=== PATIENT | female | born 1950 | race Caucasian/White ===

== ENCOUNTER 2023-05-20 10:28 | Observation (INO) | payer MEDICARE ==
[~2023-05-20] VITALS: Ht 160 cm; Wt 105.0 kg
[~2023-05-20 10:28] MED LIST: AMLO10TA PO; APIX5TAB3 PO; ATOR20TA66 PO; BENA20TA2 PO; DILT-36 PO; LEVO175T7 PO; METO100T14 PO
[2023-05-20] MEDS ORDERED: magnesium 2GM in 50ml NS 50 ML IV ONE (10:40)
--- NOTE | 2023-05-20 11:01 | NUR ---
Dr Cox at bedside to give Magnesium IV as a bolus. (See EMAR).
[2023-05-20 11:12] LABS: HEMOGLOBIN 14.8 g/dl (12.0-16.0); MONOCYTES # (AUTO) 0.8 X10'3 (0-0.9)
[2023-05-20 11:13] LABS: BASOPHILS # (AUTO) 0.1 X10'3 (0-0.2); BASOPHILS % (AUTO) 0.9 % (0-1); EOSINOPHILS # (AUTO) 0.2 X10'3 (0-0.9); EOSINOPHILS % (AUTO) 1.8 % (0-6); HEMATOCRIT 45.8 % (35.0-45.0); LYMPHOCYTES # (AUTO) 1.4 X10'3 (1.1-4.8); LYMPHOCYTES % (AUTO) 16.8 % (21-51); MEAN CORPUSCULAR HGB CONC 32.5 g/dL (33.0-36.5); MEAN CORPUSCULAR VOLUME 95.6 FL (78-98); MONOCYTES % (AUTO) 9.2 % (2-12); NEUTROPHILS # (AUTO) 5.8 X10'3 (1.8-7.7); NEUTROPHILS % (AUTO) 71.3 % (42-75); PLATELET COUNT 264 X10'3 (140-440); RED BLOOD COUNT 4.79 X10'6 (4.20-5.60); RED CELL DISTRIBUTION WIDTH 14.9 % (11.5-14.5); WHITE BLOOD COUNT 8.2 X10'3 (4.5-11.0)
[2023-05-20 11:14] LABS: ALANINE AMINOTRANSFERASE 25 U/L (12-78); ALBUMIN 4.3 G/DL (3.4-5.0); ALBUMIN/GLOBULIN RATIO 1.3 (1.1-1.5); ALKALINE PHOSPHATASE 97 IU/L (46-116); ANION GAP 5 (8-16); ASPARTATE AMINO TRANSFERASE 20 U/L (10-37); BILIRUBIN,TOTAL 0.8 MG/DL (0.1-1.0); BLOOD UREA NITROGEN 26 MG/DL (7-18); BUN/CREATININE RATIO 16.1 (10.0-20.0); CALCIUM 10.3 MG/DL (8.5-10.1); CHLORIDE 100 MMOL/L (99-107); CREATININE 1.61 MG/DL (0.40-0.90); GLUCOSE 114 MG/DL (70-104); POTASSIUM 4.3 MMOL/L (3.5-5.1); SODIUM 135 MMOL/L (135-145); TOTAL CARBON DIOXIDE 29.8 MMOL/L (24-32); TOTAL PROTEIN 7.7 G/DL (6.4-8.2); eCRCL 26 ML/MIN; eGFR 31 ML/MIN
[2023-05-20] MEDS ORDERED: diltiazem 5mg/ml 5ml inj. IV ONE (11:20)
[2023-05-20] MEDS ORDERED: diltiazem-NS 100mg/100ml 100 ML IV PRN (11:20)
[2023-05-20 11:23] LABS: MAGNESIUM 2.2 MG/DL (1.5-2.4); PRO BRAIN NATRIURETIC PEPTIDE 2202 PG/ML (0-125)
[2023-05-20 12:01] LABS: APTT 33 SECONDS (22-32); PROTHROMBIN TIME 11.2 SECONDS (9.0-12.0)
[2023-05-20] MEDS ORDERED: midazolam 1 mg/ML 2ml injection IV ONE (12:25)
[2023-05-20] MEDS ORDERED: propofol 10mg/ml 20ml vial IV ONE ×2 (12:25→13:25)
[2023-05-20] MEDS: etomidate 2mg/ml inj. IV ONE ×2 (12:26→12:39)
--- NOTE | 2023-05-20 12:27 | NUR ---
MD ADMINISTERED 20MG PROPOFOL TO PT DURING CARDIOVERSION PROCEDURE AT 1227. PT TOLERATED PROCEDURE WELL - SEE POST MOD SEDATION NOTEDS.
[2023-05-20 12:54] VITALS: RESP 12; O2SAT 97
[2023-05-20] MEDS ORDERED: HYDROcodone/acetaminophen 10/325mg tab PO PRN (14:15)
[2023-05-20] MEDS ORDERED: magnesium 2GM in 50ml NS 50 ML IV PRN (14:15)
[2023-05-20] MEDS ORDERED: potassium Cl 20 mEq SR tablet PO PRN ×2 (14:15)
[2023-05-20] MEDS ORDERED: potassium Cl 40MEQ/1/2NS 520ml 520 ML IV PRN (14:15)
[2023-05-20] MEDS ORDERED: magnesium 4gm in 100ml NS 100 ML IV PRN (14:15)
[2023-05-20] MEDS ORDERED: mag hydrox/Alum hydrox/simeth 30ml oral suspension PO PRN (14:15)
[2023-05-20] MEDS ORDERED: acetaminophen 325mg tablet PO PRN ×3 (14:15→23:20)
[2023-05-20] MEDS ORDERED: PERFLUTREN PROTEIN-A MICROSPHR (Optison) 0.22 MG/ML 3ML VIAL IV ONE (14:15)
[2023-05-20] MEDS ORDERED: bisacodyl 10mg suppository rectal RC PRN (14:15)
[2023-05-20] MEDS ORDERED: HYDROcodone/acetaminophen 5mg/325mg tablet PO PRN (14:15)
[2023-05-20] MEDS ORDERED: ondansetron/PF 4mg/2ml inj IV PRN (14:15)
[2023-05-20] MEDS ORDERED: magnesium hydroxide 30ml (MOM) UD suspension PO PRN (14:15)
[2023-05-20] MEDS ORDERED: diphenhydrAMINE 25mg capsule PO PRN (14:15)
[2023-05-20] MEDS ORDERED: magnesium Cl slow-release 64mg tablet PO PRN (14:15)
[2023-05-20] MEDS ORDERED: acetaminophen 650mg rectal suppository RC PRN (14:15)
[2023-05-20] MEDS ORDERED: APIX5TAB3 PO (14:49)
[2023-05-20] MEDS ORDERED: SACU1TAB7 PO (14:50)
[2023-05-20] MEDS ORDERED: SPIR25TA5 PO (14:50)
[2023-05-20] MEDS ORDERED: FURO20TA4 PO (14:51)
[2023-05-20] MEDS ORDERED: EMPA10TA PO (14:51)
[2023-05-20] MEDS ORDERED: ATOR20TA66 PO (14:53)
[2023-05-20] MEDS ORDERED: LEVO125T8 PO (14:54)
[2023-05-20] MEDS ORDERED: ASCO100031 PO (14:55)
[2023-05-20] MEDS ORDERED: ACET325T57 PO (14:55)
[2023-05-20] MEDS ORDERED: VITA-268 PO (14:56)
[2023-05-20] MEDS ORDERED: ACET600C PO (14:57)
[2023-05-20] MEDS ORDERED: [UNRECOGNIZED DRUG - OTHER] PO (14:57)
[2023-05-20] MEDS ORDERED: CHOL10006 PO (14:58)
[2023-05-20] MEDS ORDERED: MULT-1219 PO (14:59)
--- NOTE | 2023-05-20 15:48 | NUR ---
ECHO BEING PERFORMED.
[2023-05-20] MEDS: normal saline 1000ml 1,000 ML IV SCH ×2 (15:51→19:42)
--- NOTE | 2023-05-20 18:09 | NUR ---
Patient in room PCU 3023. I have received report from Raffi (BELA) and had the opportunity to ask questions and assume patient care.
[2023-05-20 19:35] VITALS: BP 116/51; PULSE 67; RESP 20; TEMP 97.6; O2SAT 98
[2023-05-20 20:00] VITALS: RESP 16; O2SAT 94
[2023-05-20] MEDS: docusate sod 100mg capsule PO SCH (20:00)
[2023-05-20] MEDS: K and/or MAG REPLACEMENT MC SCH (20:00)
[2023-05-20] MEDS ORDERED: sacubitril/valsartan 24mg-26mg tablet PO SCH (20:00)
[2023-05-20] MEDS ORDERED: atorvastatin 20mg tablet PO SCH (21:00)
[2023-05-20 21:20] VITALS: BP 126/60; PULSE 68; RESP 20; TEMP 97.6; O2SAT 97
[2023-05-20] MEDS: apixaban 5mg tablet PO SCH (21:23)
[2023-05-20] MEDS: sacubitril/valsartan 49mg-51mg tablet PO SCH (21:24)
[2023-05-21 02:23] VITALS: BP 131/57; PULSE 67; RESP 17; TEMP 98.6; O2SAT 98
--- NOTE | 2023-05-21 06:09 | NUR ---
Problems reprioritized. Patient report given, questions answered & plan of care reviewed with Raffi (BELA).
--- NOTE | 2023-05-21 06:31 | NUR ---
Patient in room PCU 3023. I have received report from Nabeel CRAMER and had the opportunity to ask questions and assume patient care.
[2023-05-21 07:00] VITALS: BP 134/58; PULSE 60; RESP 13; TEMP 97; O2SAT 100
[2023-05-21 07:35] LABS: BASOPHILS % (AUTO) 0.4 % (0-1); EOSINOPHILS # (AUTO) 0.2 X10'3 (0-0.9); EOSINOPHILS % (AUTO) 2.8 % (0-6); HEMATOCRIT 39.7 % (35.0-45.0); HEMOGLOBIN 13.2 g/dl (12.0-16.0); LYMPHOCYTES # (AUTO) 0.9 X10'3 (1.1-4.8); LYMPHOCYTES % (AUTO) 12.8 % (21-51); MEAN CORPUSCULAR HGB CONC 33.2 g/dL (33.0-36.5); MEAN CORPUSCULAR VOLUME 96.2 FL (78-98); MEAN PLATELET VOLUME 8.6 FL (7.4-10.4); MONOCYTES # (AUTO) 0.6 X10'3 (0-0.9); MONOCYTES % (AUTO) 8.5 % (2-12); NEUTROPHILS # (AUTO) 5.1 X10'3 (1.8-7.7); NEUTROPHILS % (AUTO) 75.5 % (42-75); PLATELET COUNT 201 X10'3 (140-440); RED BLOOD COUNT 4.13 X10'6 (4.20-5.60); WHITE BLOOD COUNT 6.7 X10'3 (4.5-11.0)
[2023-05-21] MEDS: apixaban 5mg tablet PO SCH (07:46)
[2023-05-21] MEDS ORDERED: [UNRECOGNIZED DRUG - OTHER] PO SCH (08:00)
[2023-05-21] MEDS ORDERED: cholecalciferol (vitamin D3) 1,000 unit (25mcg) tablet PO SCH (08:00)
[2023-05-21] MEDS: K and/or MAG REPLACEMENT MC SCH (08:00)
[2023-05-21] MEDS ORDERED: furosemide 20MG tablet PO SCH (08:00)
[2023-05-21] MEDS ORDERED: apixaban 5mg tablet PO SCH (08:00)
[2023-05-21] MEDS ORDERED: EMPAGLIFLOZIN 10 MG TABLET PO SCH (08:00)
[2023-05-21] MEDS ORDERED: vitamin B comp w/Vit. C tab 1 TAB TABLET PO SCH (08:00)
[2023-05-21] MEDS ORDERED: multivitamins, therapeutics tablet PO SCH (08:00)
[2023-05-21] MEDS ORDERED: ascorbic acid 500mg tablet PO SCH (08:00)
[2023-05-21] MEDS: docusate sod 100mg capsule PO SCH (08:00)
[2023-05-21] MEDS ORDERED: ACETYLCYSTEINE 1000 MG PO SCH (08:00)
[2023-05-21] MEDS ORDERED: levoTHYROXINE 125mcg tablet PO SCH (08:00)
[2023-05-21] MEDS: sacubitril/valsartan 49mg-51mg tablet PO SCH (08:06)
[2023-05-21] MEDS: normal saline 1000ml 1,000 ML IV SCH (08:06)
[2023-05-21 08:14] LABS: ALANINE AMINOTRANSFERASE 27 U/L (12-78); ALBUMIN 3.9 G/DL (3.4-5.0); ALBUMIN/GLOBULIN RATIO 1.3 (1.1-1.5); ALKALINE PHOSPHATASE 87 IU/L (46-116); ANION GAP 3 (8-16); ASPARTATE AMINO TRANSFERASE 19 U/L (10-37); BILIRUBIN,TOTAL 0.8 MG/DL (0.1-1.0); BLOOD UREA NITROGEN 25 MG/DL (7-18); BUN/CREATININE RATIO 17.4 (10.0-20.0); CALCIUM 9.7 MG/DL (8.5-10.1); CHLORIDE 104 MMOL/L (99-107); CHOLESTEROL 120 MG/DL (0-200); CREATININE 1.44 MG/DL (0.40-0.90); GLUCOSE 110 MG/DL (70-104); HDL CHOLESTEROL 61 MG/DL (35-60); LDL CHOLESTEROL 47 MG/DL (50-100); MAGNESIUM 2.5 MG/DL (1.5-2.4); POTASSIUM 4.7 MMOL/L (3.5-5.1); SODIUM 137 MMOL/L (135-145); TOTAL CARBON DIOXIDE 29.7 MMOL/L (24-32); TRIGLYCERIDES 74 MG/DL (20-135); eCRCL 29 ML/MIN; eGFR 36 ML/MIN
[2023-05-21 11:00] VITALS: BP 126/55; PULSE 61; RESP 19; TEMP 98.3; O2SAT 99
[2023-05-21 12:32] VITALS: BP_SYST 136; BP_SYST 87; BP_SYST 92; BP_DIAS 50; BP_DIAS 55; BP_DIAS 57; PULSE 65; PULSE 78; PULSE 82
[2023-05-21] MEDS ORDERED: AMIO200T67 PO ×2 (14:28→14:29)
--- NOTE | 2023-05-21 15:10 | NUR ---
Pt discharged per hospitalist. PIVs removed, cannula intact. Tele discontinued. All belongings taken home by patient. Reviewed discharge instructions, addressed all questions and concerns. Prescription e-scribed to pharmacy. Pt wheeled down to lobby by [employer] operations staff officer. Pt to be driven home by spouse.
[2023-05-21] MEDS ORDERED: atorvastatin 20mg tablet PO SCH (21:00)
[2023-05-21] MEDS ORDERED: spironolactone 25 MG tablet PO SCH (21:00)
== END 2023-05-21 15:10 | disposition home or self-care (01) ==
LOC: ER 10:28 → ED HOLD 14:16 → PCU 3S 17:56
PROVIDERS: ADMIT Family Medicine; ATTEND Family Medicine
DX: I48.20 Chronic atrial fibrillation, unspecified (principal); I12.9 Hypertensive chronic kidney disease with stage 1 through stage 4 chronic kidney disease, or unspecified chronic kidney disease; E11.22 Type 2 diabetes mellitus with diabetic chronic kidney disease; N18.9 Chronic kidney disease, unspecified; N17.9 Acute kidney failure, unspecified; E11.51 Type 2 diabetes mellitus with diabetic peripheral angiopathy without gangrene; I25.10 Atherosclerotic heart disease of native coronary artery without angina pectoris; E03.9 Hypothyroidism, unspecified; E78.5 Hyperlipidemia, unspecified; I44.7 Left bundle-branch block, unspecified; I47.20 Ventricular tachycardia, unspecified; I51.7 Cardiomegaly; Z79.01 Long term (current) use of anticoagulants; Z87.891 Personal history of nicotine dependence; Z95.5 Presence of coronary angioplasty implant and graft; Z79.899 Other long term (current) drug therapy
CPT/HCPCS: 36415; 71045; 80053; 80061; 83036; 83735; 83880; 84100; 84443; 84484; 85025; 85610; 85730; 87081; 93005; 93306; 94760; 96361; 96374; 96375; 99291; A6258; G0378; J2250; J3490; J7030; A4615; A4620

== ENCOUNTER 2023-07-01 13:00 | Inpatient (IN) | payer MEDICARE ==
[~2023-07-01] VITALS: Ht 160 cm; Wt 104.6 kg
[~2023-07-01 13:00] MED LIST changes: +ACET325T57 PO; +ACET600C PO; +AMIO200T67 PO; -AMLO10TA PO; +ASCO100031 PO; -BENA20TA2 PO; +CHOL10006 PO; -DILT-36 PO; +EMPA10TA PO; +FURO20TA4 PO; +LEVO125T8 PO; -LEVO175T7 PO; -METO100T14 PO; +MULT-1219 PO; +SACU1TAB7 PO; +SPIR25TA5 PO; +VITA-268 PO; +[UNRECOGNIZED DRUG - OTHER] PO
[2023-07-01 13:46] LABS: BASOPHILS % (AUTO) 0.4 % (0-1); EOSINOPHILS # (AUTO) 0.2 X10'3 (0-0.9); EOSINOPHILS % (AUTO) 1.6 % (0-6); HEMATOCRIT 40.8 % (35.0-45.0); HEMOGLOBIN 13.3 g/dl (12.0-16.0); LYMPHOCYTES # (AUTO) 0.9 X10'3 (1.1-4.8); LYMPHOCYTES % (AUTO) 9.1 % (21-51); MEAN CORPUSCULAR HEMOGLOBIN 30.7 PG (27.0-31.0); MEAN CORPUSCULAR HGB CONC 32.6 g/dL (33.0-36.5); MEAN CORPUSCULAR VOLUME 94.3 FL (78-98); MEAN PLATELET VOLUME 8.1 FL (7.4-10.4); MONOCYTES % (AUTO) 10.7 % (2-12); NEUTROPHILS # (AUTO) 7.3 X10'3 (1.8-7.7); NEUTROPHILS % (AUTO) 78.2 % (42-75); PLATELET COUNT 329 X10'3 (140-440); RED BLOOD COUNT 4.32 X10'6 (4.20-5.60); RED CELL DISTRIBUTION WIDTH 14.8 % (11.5-14.5); WHITE BLOOD COUNT 9.3 X10'3 (4.5-11.0)
[2023-07-01 14:33] LABS: ALANINE AMINOTRANSFERASE 18 U/L (12-78); ALBUMIN 3.3 G/DL (3.4-5.0); ALBUMIN/GLOBULIN RATIO 0.8 (1.1-1.5); ALKALINE PHOSPHATASE 81 IU/L (46-116); ANION GAP 7 (8-16); ASPARTATE AMINO TRANSFERASE 20 U/L (10-37); BILIRUBIN,TOTAL 0.9 MG/DL (0.1-1.0); BLOOD UREA NITROGEN 39 MG/DL (7-18); BUN/CREATININE RATIO 26.9 (10.0-20.0); CALCIUM 9.6 MG/DL (8.5-10.1); CHLORIDE 97 MMOL/L (99-107); CREATININE 1.45 MG/DL (0.40-0.90); GLUCOSE 103 MG/DL (70-104); POTASSIUM 4.7 MMOL/L (3.5-5.1); SODIUM 135 MMOL/L (135-145); TOTAL CARBON DIOXIDE 31.5 MMOL/L (24-32); TOTAL PROTEIN 7.5 G/DL (6.4-8.2); eCRCL 28 ML/MIN; eGFR 35 ML/MIN
[2023-07-01] MEDS ORDERED: diltiazem-NS 100mg/100ml 100 ML IV SCH (14:35)
[2023-07-01] MEDS ORDERED: diltiazem 5mg/ml 5ml inj. IV ONE (14:35)
[2023-07-01] MEDS ORDERED: furosemide 40mg/4ml inj IV ONE (14:35)
[2023-07-01] MEDS ORDERED: furosemide 10 MG/1 ML 10ml inj IV ONE (14:35)
[2023-07-01] MEDS ORDERED: magnesium 2GM in 50ml NS 50 ML IV PRN (15:10)
[2023-07-01] MEDS ORDERED: ondansetron/PF 4mg/2ml inj IV PRN (15:10)
[2023-07-01] MEDS ORDERED: potassium Cl 20 mEq SR tablet PO PRN ×2 (15:10)
[2023-07-01] MEDS ORDERED: HYDROcodone/acetaminophen 5mg/325mg tablet PO PRN (15:10)
[2023-07-01] MEDS ORDERED: magnesium Cl slow-release 64mg tablet PO PRN (15:10)
[2023-07-01] MEDS ORDERED: acetaminophen 325mg tablet PO PRN (15:10)
[2023-07-01] MEDS ORDERED: magnesium hydroxide 30ml (MOM) UD suspension PO PRN (15:10)
[2023-07-01] MEDS ORDERED: potassium Cl 40MEQ/1/2NS 520ml 520 ML IV PRN (15:10)
[2023-07-01] MEDS ORDERED: mag hydrox/Alum hydrox/simeth 30ml oral suspension PO PRN (15:10)
[2023-07-01] MEDS ORDERED: magnesium 4gm in 100ml NS 100 ML IV PRN (15:10)
[2023-07-01] MEDS ORDERED: HYDROcodone/acetaminophen 10/325mg tab PO PRN (15:10)
[2023-07-01] MEDS ORDERED: morphine 2 MG/ML inj. syringe IV PRN ×2 (15:10)
[2023-07-01 16:33] LABS: MAGNESIUM 2.3 MG/DL (1.5-2.4); POTASSIUM 4.5 MMOL/L (3.5-5.1)
[2023-07-01] MEDS ORDERED: digoxin 250mcg/ml 2ml ampule IV ONE (17:35)
[2023-07-01] MEDS: diltiazem-NS 100mg/100ml 100 ML IV SCH ×2 (17:51→23:28)
[2023-07-01] MEDS ORDERED: amiodarone 200mg tablet PO ONE (19:30)
[2023-07-01] MEDS ORDERED: apixaban 5mg tablet PO SCH (20:00)
[2023-07-01] MEDS: docusate sod 100mg capsule PO SCH (20:00)
[2023-07-01] MEDS: K and/or MAG REPLACEMENT MC SCH (20:06)
[2023-07-01] MEDS: apixaban 5mg tablet PO SCH (21:03)
[2023-07-02] MEDS: diltiazem-NS 100mg/100ml 100 ML IV SCH (05:48)
--- NOTE | 2023-07-02 06:30 | NUR ---
Received report from Elizabeth. Patient resting quietly at present time. RR even and unlabored. Monitor leads on and functioning. No obvious s/s of distress at this time.
[2023-07-02] MEDS: docusate sod 100mg capsule PO SCH ×2 (08:00→20:00)
[2023-07-02] MEDS: K and/or MAG REPLACEMENT MC SCH ×2 (08:47→20:00)
[2023-07-02] MEDS: apixaban 5mg tablet PO SCH ×2 (08:50→20:12)
--- NOTE | 2023-07-02 08:52 | NUR ---
Patient sitting at bedside eating breakfast. 95% O2 sat, turned patient from 3L to 2L. Patient O2Sat 95%.
--- NOTE | 2023-07-02 08:59 | NUR ---
Dr. Dick at nurse's desk. Notified of HR 110's, BP 90/49. Given orders to give 0.5mg of digoxin IV.
[2023-07-02] MEDS ORDERED: digoxin 250mcg/ml 2ml ampule IV ONE (09:10)
[2023-07-02 09:26] LABS: BASOPHILS % (AUTO) 0.6 % (0-1); EOSINOPHILS # (AUTO) 0.3 X10'3 (0-0.9); EOSINOPHILS % (AUTO) 4.5 % (0-6); HEMATOCRIT 38.4 % (35.0-45.0); HEMOGLOBIN 12.5 g/dl (12.0-16.0); LYMPHOCYTES # (AUTO) 0.7 X10'3 (1.1-4.8); LYMPHOCYTES % (AUTO) 9.9 % (21-51); MEAN CORPUSCULAR HEMOGLOBIN 30.7 PG (27.0-31.0); MEAN CORPUSCULAR HGB CONC 32.6 g/dL (33.0-36.5); MEAN CORPUSCULAR VOLUME 94.3 FL (78-98); MEAN PLATELET VOLUME 7.9 FL (7.4-10.4); MONOCYTES # (AUTO) 0.5 X10'3 (0-0.9); MONOCYTES % (AUTO) 6.6 % (2-12); NEUTROPHILS # (AUTO) 5.8 X10'3 (1.8-7.7); NEUTROPHILS % (AUTO) 78.4 % (42-75); PLATELET COUNT 313 X10'3 (140-440); RED BLOOD COUNT 4.08 X10'6 (4.20-5.60); RED CELL DISTRIBUTION WIDTH 14.7 % (11.5-14.5); WHITE BLOOD COUNT 7.4 X10'3 (4.5-11.0)
[2023-07-02] MEDS ORDERED: diltiazem 5mg/ml 5ml inj. IV ONE (10:05)
[2023-07-02 10:20] LABS: ALANINE AMINOTRANSFERASE 24 U/L (12-78); ALBUMIN 3.1 G/DL (3.4-5.0); ALBUMIN/GLOBULIN RATIO 0.8 (1.1-1.5); ALKALINE PHOSPHATASE 78 IU/L (46-116); ANION GAP 5 (8-16); ASPARTATE AMINO TRANSFERASE 17 U/L (10-37); BILIRUBIN,TOTAL 0.8 MG/DL (0.1-1.0); BLOOD UREA NITROGEN 39 MG/DL (7-18); BUN/CREATININE RATIO 29.1 (10.0-20.0); CALCIUM 9.7 MG/DL (8.5-10.1); CHLORIDE 98 MMOL/L (99-107); CREATININE 1.34 MG/DL (0.40-0.90); GLUCOSE 127 MG/DL (70-104); MAGNESIUM 2.3 MG/DL (1.5-2.4); POTASSIUM 4.3 MMOL/L (3.5-5.1); SODIUM 136 MMOL/L (135-145); TOTAL CARBON DIOXIDE 32.7 MMOL/L (24-32); TOTAL PROTEIN 6.8 G/DL (6.4-8.2); eCRCL 30 ML/MIN; eGFR 39 ML/MIN
[2023-07-02] MEDS ORDERED: NITR0.4T48 PO (16:56)
[2023-07-02] MEDS ORDERED: METO-395 PO (16:56)
[2023-07-02] MEDS ORDERED: AMI200T PO (16:56)
[2023-07-02] MEDS ORDERED: amiodarone 200mg tablet PO ONE ×3 (17:40→21:35)
[2023-07-02] MEDS ORDERED: metoprolol tartrate 50mg tablet PO ONE ×2 (17:40→23:00)
--- NOTE | 2023-07-02 17:49 | NUR ---
1340 received report from dirk gomez assumed care of pt monitor leads on and functioning pt sitting on gurney denies pain at present time 1732 dr hernandez at bedside new orders received
[2023-07-02] MEDS ORDERED: metoprolol tartrate 25mg tablet PO ONE ×2 (20:00→23:10)
--- NOTE | 2023-07-02 22:39 | NUR ---
PT PLACED ON HOSPITAL BED FOR COMFORT.
[2023-07-03 03:43] LABS: BASOPHILS # (AUTO) 0.1 X10'3 (0-0.2); BASOPHILS % (AUTO) 0.6 % (0-1); EOSINOPHILS # (AUTO) 0.4 X10'3 (0-0.9); HEMATOCRIT 40.1 % (35.0-45.0); HEMOGLOBIN 13.1 g/dl (12.0-16.0); LYMPHOCYTES # (AUTO) 0.6 X10'3 (1.1-4.8); LYMPHOCYTES % (AUTO) 7.2 % (21-51); MEAN CORPUSCULAR HEMOGLOBIN 30.6 PG (27.0-31.0); MEAN CORPUSCULAR HGB CONC 32.5 g/dL (33.0-36.5); MEAN CORPUSCULAR VOLUME 94.2 FL (78-98); MEAN PLATELET VOLUME 8.6 FL (7.4-10.4); MONOCYTES # (AUTO) 0.8 X10'3 (0-0.9); MONOCYTES % (AUTO) 9.4 % (2-12); NEUTROPHILS # (AUTO) 6.7 X10'3 (1.8-7.7); NEUTROPHILS % (AUTO) 77.8 % (42-75); PLATELET COUNT 325 X10'3 (140-440); RED BLOOD COUNT 4.26 X10'6 (4.20-5.60); RED CELL DISTRIBUTION WIDTH 14.8 % (11.5-14.5); WHITE BLOOD COUNT 8.6 X10'3 (4.5-11.0)
[2023-07-03 04:23] LABS: ALANINE AMINOTRANSFERASE 25 U/L (12-78); ALBUMIN 3.2 G/DL (3.4-5.0); ALBUMIN/GLOBULIN RATIO 0.8 (1.1-1.5); ALKALINE PHOSPHATASE 88 IU/L (46-116); ANION GAP 4 (8-16); ASPARTATE AMINO TRANSFERASE 20 U/L (10-37); BILIRUBIN,TOTAL 0.6 MG/DL (0.1-1.0); BLOOD UREA NITROGEN 33 MG/DL (7-18); BUN/CREATININE RATIO 28.9 (10.0-20.0); CALCIUM 9.8 MG/DL (8.5-10.1); CHLORIDE 98 MMOL/L (99-107); CREATININE 1.14 MG/DL (0.40-0.90); GLUCOSE 120 MG/DL (70-104); MAGNESIUM 2.3 MG/DL (1.5-2.4); POTASSIUM 4.8 MMOL/L (3.5-5.1); SODIUM 136 MMOL/L (135-145); TOTAL CARBON DIOXIDE 33.9 MMOL/L (24-32); eCRCL 36 ML/MIN; eGFR 47 ML/MIN
[2023-07-03] MEDS ORDERED: acetaminophen 325mg tablet PO PRN (07:20)
[2023-07-03] MEDS: cholecalciferol (vitamin D3) 1,000 unit (25mcg) tablet PO SCH (07:41)
[2023-07-03] MEDS: ascorbic acid 500mg tablet PO SCH (07:42)
[2023-07-03] MEDS: furosemide 40mg/4ml inj IV SCH ×2 (07:43→20:56)
[2023-07-03] MEDS: apixaban 5mg tablet PO SCH ×2 (07:43→20:57)
[2023-07-03] MEDS: multivitamins, therapeutics tablet PO SCH (07:43)
[2023-07-03] MEDS: docusate sod 100mg capsule PO SCH ×2 (07:44→20:00)
[2023-07-03] MEDS: K and/or MAG REPLACEMENT MC SCH ×2 (08:00→20:00)
[2023-07-03] MEDS ORDERED: metoprolol succinate 25mg (24-HOUR) SR. Tablet PO SCH (08:00)
[2023-07-03] MEDS ORDERED: non-formulary drug (Vitamin B Complex (B Complex) 1 TAB) PO SCH (08:00)
[2023-07-03] MEDS ORDERED: amiodarone 200mg tablet PO SCH ×2 (08:00)
[2023-07-03] MEDS ORDERED: MULTIVITAMIN PO SCH (08:00)
[2023-07-03] MEDS ORDERED: [UNRECOGNIZED DRUG - OTHER] PO SCH (08:00)
[2023-07-03] MEDS ORDERED: apixaban 5mg tablet PO SCH (08:00)
[2023-07-03] MEDS: levoTHYROXINE 125mcg tablet PO SCH (08:57)
[2023-07-03] MEDS ORDERED: digoxin 250mcg/ml 2ml ampule IV ONE ×2 (10:15→16:30)
--- NOTE | 2023-07-03 11:28 | NUR ---
assisting RN with pt care, pt up to bedside commode without assist, pt is on room air pulse ox85%, placed pt back on 2liters nasal cannula and pulse ox 92%, pt is talking full sentences, no resp distress, resp even and unlabored, skin p/w/d. Report given to Mikki Betancur RN. Also offered pt tooth brush etc for hyigene care.
[2023-07-03] MEDS ORDERED: ondansetron 4mg rapidly disintigrating tab PO PRN (14:05)
[2023-07-03 14:26] VITALS: BP 141/77; PULSE 111; RESP 15; TEMP 97.4; O2SAT 94
[2023-07-03 15:41] VITALS: BP 122/78; PULSE 106; RESP 18; TEMP 97.5; O2SAT 92
[2023-07-03 15:55] VITALS: RESP 14; O2SAT 92
--- NOTE | 2023-07-03 18:22 | NUR ---
Problems reprioritized. Patient report given, questions answered & plan of care reviewed with Mar. Addendum: 07/03/23 at 1822 by José Antonio Sena RN Amended: Links added.
--- NOTE | 2023-07-03 18:30 | NUR ---
Patient in room PCU 3018. I have received report from [facility] and had the opportunity to ask questions and assume patient care.
[2023-07-03 19:15] VITALS: BP 121/70; PULSE 112; RESP 18; O2SAT 96
[2023-07-03] MEDS: amiodarone 200mg tablet PO SCH (20:57)
[2023-07-03] MEDS: sacubitril/valsartan 49mg-51mg tablet PO SCH (20:57)
[2023-07-03] MEDS: metoprolol succinate 25mg (24-HOUR) SR. Tablet PO SCH (20:57)
[2023-07-03] MEDS ORDERED: atorvastatin 20mg tablet PO SCH (21:00)
[2023-07-03] MEDS ORDERED: spironolactone 25 MG tablet PO SCH (21:00)
[2023-07-03 22:30] VITALS: BP 113/58; PULSE 111; RESP 20; TEMP 97.7; O2SAT 98
[2023-07-04 02:00] VITALS: BP 103/55; PULSE 62; RESP 18; O2SAT 95
--- NOTE | 2023-07-04 06:09 | NUR ---
Patient in room U 3018. I have received report from Mar and had the opportunity to ask questions and assume patient care. Addendum: 07/04/23 at 0609 by José Antonio Sena RN Amended: Links added.
--- NOTE | 2023-07-04 06:12 | NUR ---
Problems reprioritized. Patient report given, questions answered & plan of care reviewed with JANENE.
[2023-07-04 06:40] LABS: BASOPHILS % (AUTO) 0.4 % (0-1); EOSINOPHILS # (AUTO) 0.4 X10'3 (0-0.9); EOSINOPHILS % (AUTO) 4.2 % (0-6); HEMATOCRIT 41.3 % (35.0-45.0); HEMOGLOBIN 13.1 g/dl (12.0-16.0); LYMPHOCYTES # (AUTO) 0.9 X10'3 (1.1-4.8); LYMPHOCYTES % (AUTO) 10.5 % (21-51); MEAN CORPUSCULAR HEMOGLOBIN 29.9 PG (27.0-31.0); MEAN CORPUSCULAR HGB CONC 31.7 g/dL (33.0-36.5); MEAN CORPUSCULAR VOLUME 94.2 FL (78-98); MEAN PLATELET VOLUME 7.8 FL (7.4-10.4); MONOCYTES # (AUTO) 0.9 X10'3 (0-0.9); MONOCYTES % (AUTO) 10.6 % (2-12); NEUTROPHILS # (AUTO) 6.6 X10'3 (1.8-7.7); NEUTROPHILS % (AUTO) 74.3 % (42-75); PLATELET COUNT 350 X10'3 (140-440); RED BLOOD COUNT 4.38 X10'6 (4.20-5.60); RED CELL DISTRIBUTION WIDTH 14.6 % (11.5-14.5); WHITE BLOOD COUNT 8.9 X10'3 (4.5-11.0)
[2023-07-04 06:59] LABS: ALANINE AMINOTRANSFERASE 22 U/L (12-78); ALBUMIN 3.1 G/DL (3.4-5.0); ALBUMIN/GLOBULIN RATIO 0.8 (1.1-1.5); ALKALINE PHOSPHATASE 81 IU/L (46-116); ANION GAP 1 (8-16); ASPARTATE AMINO TRANSFERASE 15 U/L (10-37); BILIRUBIN,TOTAL 1.1 MG/DL (0.1-1.0); BLOOD UREA NITROGEN 30 MG/DL (7-18); BUN/CREATININE RATIO 20.5 (10.0-20.0); CALCIUM 9.8 MG/DL (8.5-10.1); CHLORIDE 95 MMOL/L (99-107); CREATININE 1.46 MG/DL (0.40-0.90); GLUCOSE 100 MG/DL (70-104); MAGNESIUM 1.9 MG/DL (1.5-2.4); POTASSIUM 4.5 MMOL/L (3.5-5.1); SODIUM 135 MMOL/L (135-145); TOTAL CARBON DIOXIDE 38.7 MMOL/L (24-32); TOTAL PROTEIN 6.9 G/DL (6.4-8.2); eCRCL 28 ML/MIN; eGFR 35 ML/MIN
[2023-07-04 07:11] VITALS: BP 130/63; PULSE 58; RESP 17; TEMP 97.8; O2SAT 95
[2023-07-04] MEDS: docusate sod 100mg capsule PO SCH (07:45)
[2023-07-04] MEDS: furosemide 40mg/4ml inj IV SCH (07:45)
[2023-07-04] MEDS: levoTHYROXINE 125mcg tablet PO SCH (07:45)
[2023-07-04] MEDS: amiodarone 200mg tablet PO SCH (07:46)
[2023-07-04] MEDS: multivitamins, therapeutics tablet PO SCH (07:46)
[2023-07-04] MEDS: metoprolol succinate 25mg (24-HOUR) SR. Tablet PO SCH (07:46)
[2023-07-04] MEDS: apixaban 5mg tablet PO SCH (07:46)
[2023-07-04] MEDS: cholecalciferol (vitamin D3) 1,000 unit (25mcg) tablet PO SCH (07:46)
[2023-07-04] MEDS: ascorbic acid 500mg tablet PO SCH (07:46)
[2023-07-04] MEDS: sacubitril/valsartan 49mg-51mg tablet PO SCH (07:49)
[2023-07-04 07:55] VITALS: RESP 17; O2SAT 95
[2023-07-04] MEDS: K and/or MAG REPLACEMENT MC SCH (08:00)
[2023-07-04] MEDS ORDERED: PRED10TA23 PO (12:14)
[2023-07-04] MEDS ORDERED: METO-395 PO (12:14)
[2023-07-04] MEDS ORDERED: FURO20TA4 PO (12:14)
[2023-07-04 13:00] VITALS: BP 127/57; PULSE 60; RESP 16; TEMP 98.4; O2SAT 96
[2023-07-04] MEDS ORDERED: AMI200T PO (13:01)
--- NOTE | 2023-07-04 13:47 | NUR ---
Iv/tele removed, paperwork reviewed and questions answered
== END 2023-07-04 13:48 | disposition home health service (06) | DRG 291 ==
LOC: ER 13:00 → ED HOLD 15:14 → PCU 3S 07-03 14:05
PROVIDERS: ADMIT Internal Medicine; ATTEND Internal Medicine
DX: I11.0 Hypertensive heart disease with heart failure (principal); I50.23 Acute on chronic systolic (congestive) heart failure; N17.0 Acute kidney failure with tubular necrosis; J96.21 Acute and chronic respiratory failure with hypoxia; Z68.41 Body mass index [BMI] 40.0-44.9, adult; I42.9 Cardiomyopathy, unspecified; E03.9 Hypothyroidism, unspecified; E78.5 Hyperlipidemia, unspecified; I48.0 Paroxysmal atrial fibrillation; E11.51 Type 2 diabetes mellitus with diabetic peripheral angiopathy without gangrene; E66.01 Morbid (severe) obesity due to excess calories; J44.9 Chronic obstructive pulmonary disease, unspecified; M19.90 Unspecified osteoarthritis, unspecified site; Z79.899 Other long term (current) drug therapy; Z87.891 Personal history of nicotine dependence; Z63.4 Disappearance and death of family member; Z90.710 Acquired absence of both cervix and uterus; Z95.5 Presence of coronary angioplasty implant and graft
CPT/HCPCS: 36415; 71045; 80053; 83735; 83880; 84132; 84484; 85025; 87081; 93308; 99285; A4615; G0378; J1160; J1940; J3490

== ENCOUNTER 2023-09-03 14:44 | Emergency (ER) | payer MEDICARE ==
[~2023-09-03] VITALS: Ht 152.4 cm; Wt 103.0 kg
[~2023-09-03 14:44] MED LIST changes: -ACET600C PO; +AMI200T PO; -AMIO200T67 PO; -EMPA10TA PO; +METO-395 PO; +NITR0.4T48 PO
[2023-09-03 15:52] LABS: EOSINOPHILS # (AUTO) 0.2 X10'3 (0-0.9); LYMPHOCYTES # (AUTO) 0.9 X10'3 (1.1-4.8); LYMPHOCYTES % (AUTO) 14.2 % (21-51); MEAN PLATELET VOLUME 8.8 FL (7.4-10.4); MONOCYTES # (AUTO) 0.7 X10'3 (0-0.9); PLATELET COUNT 218 X10'3 (140-440)
[2023-09-03 15:54] LABS: BASOPHILS % (AUTO) 0.4 % (0-1); EOSINOPHILS % (AUTO) 2.7 % (0-6); MEAN CORPUSCULAR HEMOGLOBIN 30.7 PG (27.0-31.0); MEAN CORPUSCULAR HGB CONC 32.4 g/dL (33.0-36.5); MEAN CORPUSCULAR VOLUME 94.9 FL (78-98); MONOCYTES % (AUTO) 11.2 % (2-12); NEUTROPHILS # (AUTO) 4.3 X10'3 (1.8-7.7); NEUTROPHILS % (AUTO) 71.5 % (42-75); RED BLOOD COUNT 4.22 X10'6 (4.20-5.60)
[2023-09-03 16:05] LABS: APTT 31 SECONDS (22-32); PROTHROMBIN TIME 10.6 SECONDS (9.0-12.0)
[2023-09-03 16:06] LABS: ALANINE AMINOTRANSFERASE 28 U/L (12-78); ALBUMIN 3.8 G/DL (3.4-5.0); ALBUMIN/GLOBULIN RATIO 1.1 (1.1-1.5); ALKALINE PHOSPHATASE 111 IU/L (46-116); ANION GAP 8 (8-16); ASPARTATE AMINO TRANSFERASE 19 U/L (10-37); BILIRUBIN,TOTAL 0.5 MG/DL (0.1-1.0); BLOOD UREA NITROGEN 24 MG/DL (7-18); BUN/CREATININE RATIO 17.8 (10.0-20.0); CALCIUM 9.7 MG/DL (8.5-10.1); CHLORIDE 101 MMOL/L (99-107); CREATININE 1.35 MG/DL (0.40-0.90); GLUCOSE 108 MG/DL (70-104); POTASSIUM 3.7 MMOL/L (3.5-5.1); SODIUM 139 MMOL/L (135-145); TOTAL CARBON DIOXIDE 29.8 MMOL/L (24-32); TOTAL PROTEIN 7.3 G/DL (6.4-8.2); eCRCL 26 ML/MIN; eGFR 38 ML/MIN
[2023-09-03 16:55] VITALS: BP 171/89; PULSE 82; RESP 18; TEMP 98.3; O2SAT 96
== END 2023-09-03 17:02 | disposition home or self-care (01) ==
LOC: ER 14:45
DX: L03.115 Cellulitis of right lower limb (principal); I10 Essential (primary) hypertension; Z72.89 Other problems related to lifestyle; Z98.890 Other specified postprocedural states; Z79.899 Other long term (current) drug therapy
CPT/HCPCS: 36415; 80053; 85025; 85610; 85730; 93971; 99284